=== PATIENT | female | born 1950 | race Caucasian/White ===

== ENCOUNTER 2017-02-14 19:14 | Observation (INO) | payer BC ==
--- NOTE | 2017-02-14 19:51 | DR.GENAD ---
HPI - HPI Comment HPI Comment: PATIENT HAVE SUDDEN ONSET OF N/ V, DIZZINESS AND VERTIGO AT HOME. CAUSE PATIENT TO BECOME WEAK AND HAD NEAR SYMCOPAL EPISODES. PATIENT HAVE RIGHT AKA.PATIENT HAVE HEADACHE ALSO. - Complaint/Symptoms Chief Complaint Doctors Comments: DIZZINESS AND NAUSEA AND VOMITING SUDDEN ONSET TONIGHT. Chief Complaint:: " Real dizzy throwing up and running off at the stomach." - Nurses notes reviewed Nurses Notes Review: Yes - Source History Provided: Patient - Mode of Arrival Mode of Arrival: Wheelchair - Timing Onset of Chief Complaint: 02/14/17 Came on: Suddenly - Duration Duration: Constant Duration: Hours - Severity Severity: Moderate PMH - PMH Past Medical History: Yes Past Medical History: Diabetes, Hypertension Past Surgical History: Yes Surgical History: Other Past Surgical History Comment: Heart surgery x2. Stents x2 - Family History History of Family Medical Conditions: Yes Family Medical History: Heart Failure - Social History Alcohol Use: None Do you use any recreational Drugs:: No Lives With: Family Lives Where: Home - infectious screening Have you traveled outside the country in the last 6 months?: No ROS - Review of Systems Constitutional: Weakness, Fatigue. negative: Chills, Diaphoresis, Fever, Loss of Appetite Eyes: No Symptoms Reported. negative: Eye Pain, Discharge ENTM: No Symptoms Reported. negative: Ear Pain, Nose Discharge, Nose Congestion , Throat Pain Respiratoy: No Symptoms Reported. negative: Productive Cough, Non-Productive Cough, Short of Breath, Wheezing, Hemoptysis Cardiovascular: No Symptoms Reported. negative: Chest Pain, Edema, Palpitations , Syncope Gastrointestinal/Abdominal: negative: Nausea, Vomiting Genitourinary: No Symptoms Reported. negative: Dysuria, Frequency, Hematuria Neurological: No Symptoms Reported, Headache, Weakness, Dizziness Musculoskeletal: Muscle Pain Integumentary: No Symptoms Reported Hematologic/Lymphatic: No Symptoms Reported Endocrine: No Symptoms Reported All Other Systems: Reviewed and Negative PE - Vital Signs Vitals: Temperature 97.8 F Pulse Rate [Left Brachial] 57 Pulse Rate 64 Respiratory Rate 18 Blood Pressure [Left Arm] 219/88 Blood Pressure 204/84 O2 Sat by Pulse Oximetry 97 - General Limitations: No Limitations General Appearance: Alert - Head Head Exam: Normal Inspection - Eyes Eye exam: Normal Appearance - ENT ENT Exam: Normal External Ear Exam External Ear Exam: Normal External Inspection TM/Canal Exam: Bilateral Normal Nose Exam: Normal Nose Exam Mouth Exam: Normal Inspection Throat Exam: Normal Inspection - Neck Neck Exam: Trachea Midline - Chest Chest Inspection: Symmetric Chest Wall Rise - Respiratory Respiratory Exam: Normal Lung Sounds Bilat Respiratory Exam: Bilateral Clear to Auscultation - Abdominal Exam Abdominal Exam: Normal Inspection, Normal Bowel Sounds. negative: Tenderness - Extremities Extremities Exam: Normal Inspection - Back Back Exam: Paraspinal Tenderness - Neurologic Neurological Exam: Alert, Oriented X3, CN II-XII Intact, Reflexes Normal. negative: Motor Sensory Deficit - Psychiatric Psychiatric Exam: Normal Affect, Normal Mood - Skin Skin Exam: Normal Color [facility] - Additional Information Additional Information Obtained From: Family - Differential Diagnosis Differential Diagnosis: VERTIGO, CVA, TIA, DIZZINEE, PA, CAD Course - Treatment Treatment: SEE ORDERS - Education/Counseling Education/Counseling: Patient, Family, Education Educated On: Diagnosis, Needs for Follow Up ROR - Labs Reviewed Laboratory Results Reviewed?: Yes Result Diagrams: 02/15/17 02:24 02/15/17 02:24 Laboratory: WBC 8.3 X10^3/uL (3.6-10.0) 02/15/17 02:24 RBC 3.11 X10^6/uL (3.5-5.4) L 02/15/17 02:24 Hgb 9.7 g/dL (12.0-16.0) L 02/15/17 02:24 Hct 27.1 % (36.0-47.0) L 02/15/17 02:24 MCV 87.1 fL (80.0-100.0) 02/15/17 02:24 MCH 31.1 pg (27.0-34.0) 02/15/17 02:24 MCHC 35.7 g/dL (33.0-35.0) H 02/15/17 02:24 RDW 13.3 % (11.6-16.5) 02/15/17 02:24 Plt Count 167 X10^3/uL (150.0-450.0) 02/15/17 02:24 MPV 8.8 fL (7.4-11.0) 02/15/17 02:24 Neut % 75.4 % (42.0-75.0) H 02/15/17 02:24 Lymph % 16.6 % (21.0-51.0) L 02/15/17 02:24 [place] % 7.6 % (0.0-13.0) 02/15/17 02:24 Eos % 0.2 % (0.9-2.9) L 02/15/17 02:24 Baso % 0.2 % (0.2-1.0) 02/15/17 02:24 Neut # 6.3 x10^3/uL (2.2-4.8) H 02/15/17 02:24 Lymph # 1.4 X10^3/uL (1.3-2.9) 02/15/17 02:24 [place] # 0.6 x10^3/uL (0.3-0.8) 02/15/17 02:24 Eos # 0.0 x10^3/uL (0.0-0.2) 02/15/17 02:24 Baso # 0.0 X10^3/uL (0.0-0.1) 02/15/17 02:24 Absolute Nucleated RBC 0.0 /100WBC 02/15/17 02:24 Sodium 128 mmol/L (136-145) L 02/15/17 02:24 Corrected Sodium 130 mmol/L (136-145) L 02/15/17 02:24 Potassium 4.6 mmol/L (3.5-5.1) 02/15/17 02:24 Chloride 93 mmol/L (98-107) L 02/15/17 02:24 Carbon Dioxide 26.7 mmol/L (21-32) 02/15/17 02:24 BUN 15 mg/dL (7-18) 02/15/17 02:24 Creatinine 1.26 mg/dL (0.55-1.02) H 02/15/17 02:24 Est GFR (MDRD) Af Amer 55 (>60) L 02/15/17 02:24 Est GFR (MDRD) Non-Af 45 (>60) L 02/15/17 02:24 Glucose 191 mg/dL (65-99) H 02/15/17 02:24 Calcium 8.7 mg/dL (8.5-10.1) 02/15/17 02:24 Corrected Calcium TNP 02/15/17 02:24 Total Bilirubin 0.70 mg/dL (0.2-1.0) 02/15/17 02:24 AST 16 Units/L (15-37) 02/15/17 02:24 ALT 19 Units/L (12-78) 02/15/17 02:24 Alkaline Phosphatase 98 Units/L (46-116) 02/15/17 02:24 Creatine Kinase 41 Units/L (26-192) 02/15/17 02:24 CK-MB (CK-2) 1.5 ng/mL (0-4.0) 02/15/17 02:24 CK/CKMB % Calc 3.7 % (<4) 02/15/17 02:24 Troponin I < 0.02 ng/mL (0-1.5) 02/15/17 02:24 Total Protein 6.7 g/dL (6.4-8.2) 02/15/17 02:24 Albumin 3.5 g/dL (3.4-5.0) 02/15/17 02:24 Globulin 3.2 g/dL (2.5-4.5) 02/15/17 02:24 Albumin/Globulin Ratio 1.1 Ratio (1.1-2.1) 02/15/17 02:24 Triglycerides 57 mg/dL (0-150) 02/15/17 02:24 Cholesterol 105 mg/dL (0-200) 02/15/17 02:24 LDL Cholesterol, Calc 51 mg/dL (0-100) 02/15/17 02:24 HDL Cholesterol 43 mg/dL (40-60) 02/15/17 02:24 Cholesterol/HDL Ratio 2.4 (0.0-5.0) 02/15/17 02:24 Specimen Type Clean catch urine 02/14/17 23:00 Urine Color Yellow (YELLOW) 02/14/17 23:00 Urine Appearance Clear (CLEAR) 02/14/17 23:00 Urine pH 8.0 (5.0 - 8.0) 02/14/17 23:00 Ur Specific [place] 1.015 (1.000-1.030) 02/14/17 23:00 Urine Protein Negative (NEGATIVE) 02/14/17 23:00 Urine Glucose (UA) Negative (NEGATIVE) 02/14/17 23:00 Urine Ketones Negative (NEGATIVE) 02/14/17 23:00 Urine Occult Blood 3+ (NEGATIVE) 02/14/17 23:00 Urine Nitrite Negative (NEGATIVE) 02/14/17 23:00 Urine Bilirubin Negative (NEGATIVE) 02/14/17 23:00 Urine Urobilinogen Normal (NORMAL) 02/14/17 23:00 Ur Leukocyte Esterase Negative (NEGATIVE) 02/14/17 23:00 Urine RBC 3-5 /HPF (NEGATIVE) 02/14/17 23:00 Urine WBC None seen /HPF (NEGATIVE) 02/14/17 23:00 Ur Squamous Epith Cells Rare /HPF (NEGATIVE) 02/14/17 23:00 Urine Bacteria Negative /HPF (NEGATIVE) 02/14/17 23:00 Ur Culture Indicated? No/not indicated 02/14/17 23:00 - XRAY XRAY Interpreted by: Radiologist XRAY Findings: REPORT DISCUSS WITH PATIENT. - EKG Rhythm: NSR (EKG NOTED.) - Diagnosis Discharge Problem: Abnormal CT of brain, Vertigo, Dizziness, Ataxia - Discharge Plan Disposition: ADMITTED INPATIENT Condition: Stable - Follow ups/Referrals - Instructions
[2017-02-14] MEDS ORDERED: ZOFRAN INJ 4 MG VIAL IVP ONE (19:53)
[2017-02-14 20:10] LABS: BASOPHILS % (AUTO) 0.3 % (0.2-1.0); EOSINOPHILS # (AUTO) 0.1 x10^3/uL (0.0-0.2); EOSINOPHILS % (AUTO) 0.9 % (0.9-2.9); HEMATOCRIT 31.7 % (36.0-47.0); HEMOGLOBIN 11.1 g/dL (12.0-16.0); LYMPHOCYTES # (AUTO) 1.4 X10^3/uL (1.3-2.9); LYMPHOCYTES % (AUTO) 12.4 % (21.0-51.0); MEAN CORPUSCULAR HEMOGLOBIN 30.2 pg (27.0-34.0); MEAN CORPUSCULAR VOLUME 86.3 fL (80.0-100.0); MEAN PLATELET VOLUME 8.7 fL (7.4-11.0); MONOCYTES # (AUTO) 1.2 x10^3/uL (0.3-0.8); MONOCYTES % (AUTO) 9.9 % (0.0-13.0); NEUTROPHILS % (AUTO) 76.5 % (42.0-75.0); PLATELET COUNT 191 X10^3/uL (150.0-450.0); RED BLOOD COUNT 3.67 X10^6/uL (3.5-5.4); RED CELL DISTRIBUTION WIDTH 13.6 % (11.6-16.5); WHITE BLOOD COUNT 11.7 X10^3/uL (3.6-10.0)
[2017-02-14] MEDS ORDERED: ZOFRAN INJ 4 MG VIAL ONE (20:24)
[2017-02-14 20:26] LABS: BLOOD UREA NITROGEN 14 mg/dL (7-18); CALCIUM 9.4 mg/dL (8.5-10.1); CARBON DIOXIDE 27.9 mmol/L (21-32); CHLORIDE 90 mmol/L (98-107); COR NA(FOR HYPERGLY) 129 mmol/L (136-145); CREATININE 1.28 mg/dL (0.55-1.02); GLUCOSE 187 mg/dL (65-99); SODIUM 127 mmol/L (136-145); TROPONIN I < 0.02 ng/mL (0-1.5); eGFR BLACK RACES 54 (>60); eGFR NON BLACK RACES 44 (>60)
[2017-02-14 20:30] LABS: ALANINE AMINOTRANSFERASE 23 Units/L (12-78); ALBUMIN 4.1 g/dL (3.4-5.0); ALKALINE PHOSPHATASE 117 Units/L (46-116); ASPARTATE AMINO TRANSFERASE 19 Units/L (15-37); CKMB % 3.4 % (<4); CREATINE KINASE 41 Units/L (26-192); CREATINE KINASE MB 1.4 ng/mL (0-4.0); TOTAL PROTEIN 7.9 g/dL (6.4-8.2)
[2017-02-14] MEDS: NS 1000 ML 1,000 ML IV SCH (20:36)
--- NOTE | 2017-02-14 21:36 | CT ---
STUDY: CT HEAD WITHOUT CONTRAST HISTORY: Dizziness. Acute onset of dizziness, nausea and vomiting. COMPARISON: None. TECHNIQUE: Multiple axial images of the head were obtained from the skull base to the vertex without administration of IV contrast. Automated exposure control (AEC) was utilized to adjust the MA and/o r kV. Findings: The sulci, cisterns and ventricles are prominent consistent with diffuse volume loss. There are scattered foci of low attenuation in the periventricular and subcortical white matter of b oth hemispheres. This is a nonspecific finding which likely represents microangiopathic change in a patient of this age. There is a chronic infarct with encephalomalacia at the junction of the left occipital and parietal lobes. There is a small ill-defined focus of high attenuation in the left occipital lobe. There is n o evidence of acute territorial infarction, mass, mass effect or midline shift. There are no abnorma l extra-axial fluid collections. There is no evidence of acute osseous abnormality or significant soft tissue swelling. IMPRESSION: 1. Small ill-defined focus of high attenuation in the left occipital lobe. This likely represents a small focus of mineralization. Small focus of hemorrhage is not favored, but is not excluded. 2. Old infarct with encephalomalacia in the left parietal occipital lobes. 3. Nonspecific white matter change and volume loss as described. 4. If there remains strong clinical concern for acute intracranial abnormality, then an MRI examinat ion should be considered for further evaluation. Reported By:
--- NOTE | 2017-02-14 23:13 | RAD ---
HISTORY: 66-year-old female with dizziness. Study: Single frontal view of the chest. Comparison: None. Findings: Prior CABG. The trachea is midline. The cardiac silhouette is enlarged. No focal consolidation, effusion or pn eumothorax. The bony thorax is unremarkable. IMPRESSION: 1. Cardiomegaly without other acute cardiopulmonary process. Reported By:
[2017-02-14 23:15] LABS: BILIRUBIN,URINE NEGATIVE (NEGATIVE); BLOOD/HEMOGLOBIN,URINE 3+ (NEGATIVE); GLUCOSE, URINE NEGATIVE (NEGATIVE); KETONES,URINE NEGATIVE (NEGATIVE); LEUKOCYTE ESTERASE ,URINE NEGATIVE (NEGATIVE); NITRITES,URINE NEGATIVE (NEGATIVE); PROTEIN,URINE NEGATIVE (NEGATIVE); UROBILINOGEN,URINE NORMAL (NORMAL)
[2017-02-14 23:22] LABS: APPEARANCE,URINE CLEAR (CLEAR); COLOR,URINE YELLOW (YELLOW)
[2017-02-14 23:23] LABS: BACTERIA,URINE NEGATIVE /HPF (NEGATIVE); SQUAMOUS EPITHELIAL CELL,UR RARE /HPF (NEGATIVE)
[2017-02-15] MEDS ORDERED: CATAPRES TAB 0.2 MG PO ONE (00:33)
[2017-02-15] MEDS ORDERED: CATAPRES TAB 0.2 MG ONE (00:39)
[2017-02-15 02:38] LABS: BASOPHILS % (AUTO) 0.2 % (0.2-1.0); EOSINOPHILS % (AUTO) 0.2 % (0.9-2.9); HEMATOCRIT 27.1 % (36.0-47.0); HEMOGLOBIN 9.7 g/dL (12.0-16.0); LYMPHOCYTES # (AUTO) 1.4 X10^3/uL (1.3-2.9); LYMPHOCYTES % (AUTO) 16.6 % (21.0-51.0); MEAN CORPUSCULAR HEMOGLOBIN 31.1 pg (27.0-34.0); MEAN CORPUSCULAR HGB CONC 35.7 g/dL (33.0-35.0); MEAN CORPUSCULAR VOLUME 87.1 fL (80.0-100.0); MEAN PLATELET VOLUME 8.8 fL (7.4-11.0); MONOCYTES # (AUTO) 0.6 x10^3/uL (0.3-0.8); MONOCYTES % (AUTO) 7.6 % (0.0-13.0); NEUTROPHILS # (AUTO) 6.3 x10^3/uL (2.2-4.8); NEUTROPHILS % (AUTO) 75.4 % (42.0-75.0); PLATELET COUNT 167 X10^3/uL (150.0-450.0); RED BLOOD COUNT 3.11 X10^6/uL (3.5-5.4); RED CELL DISTRIBUTION WIDTH 13.3 % (11.6-16.5); WHITE BLOOD COUNT 8.3 X10^3/uL (3.6-10.0)
[2017-02-15 02:49] LABS: ALANINE AMINOTRANSFERASE 19 Units/L (12-78); ALBUMIN 3.5 g/dL (3.4-5.0); ALKALINE PHOSPHATASE 98 Units/L (46-116); ASPARTATE AMINO TRANSFERASE 16 Units/L (15-37); BLOOD UREA NITROGEN 15 mg/dL (7-18); CALCIUM 8.7 mg/dL (8.5-10.1); CARBON DIOXIDE 26.7 mmol/L (21-32); CHLORIDE 93 mmol/L (98-107); CHOL/HDL RATIO 2.4 (0.0-5.0); CHOLESTEROL 105 mg/dL (0-200); COR NA(FOR HYPERGLY) 130 mmol/L (136-145); CREATININE 1.26 mg/dL (0.55-1.02); GLUCOSE 191 mg/dL (65-99); HDL CHOLESTEROL 43 mg/dL (40-60); SODIUM 128 mmol/L (136-145); TOTAL PROTEIN 6.7 g/dL (6.4-8.2); TRIGLYCERIDES 57 mg/dL (0-150); eGFR BLACK RACES 55 (>60); eGFR NON BLACK RACES 45 (>60)
[2017-02-15 02:56] LABS: CKMB % 3.7 % (<4); CREATINE KINASE 41 Units/L (26-192); CREATINE KINASE MB 1.5 ng/mL (0-4.0); TROPONIN I < 0.02 ng/mL (0-1.5)
[2017-02-15] MEDS: NS 1000 ML 1,000 ML IV SCH ×3 (05:01→21:35)
[2017-02-15 05:22] VITALS: BMI 24.3
[2017-02-15 09:03] LABS: CKMB % 3.5 % (<4); CREATINE KINASE 51 Units/L (26-192); CREATINE KINASE MB 1.8 ng/mL (0-4.0); TROPONIN I < 0.02 ng/mL (0-1.5)
--- NOTE | 2017-02-15 12:26 | DR.H&P ---
H&P - History & Physical for Day of: H&P Date: 02/15/17 - Chief Complaint Chief Complaint: DIZZINESS, WEAKNESS - Allergies Allergies/Adverse Reactions: Allergies Allergy/AdvReac Type Severity Reaction Status Date / Time MS Acetaminophen Allergy Verified 02/14/17 19:43 [From MS Lorcet 10/650] MS Atropine Allergy Verified 02/14/17 19:43 [From MS Atropine and Demerol] MS Hydrocodone Allergy Verified 02/14/17 19:43 [From MS Lorcet 10/650] MS Ibuprofen [From MS Motrin] Allergy Verified 02/14/17 19:43 MS Meperidine Allergy Verified 02/14/17 19:43 [From MS Atropine and Demerol] MS Naproxen [From MS Aleve] Allergy Verified 02/14/17 19:43 MS Prednisone Allergy Verified 02/14/17 19:43 MS Tramadol Allergy Verified 02/14/17 19:43 MS Warfarin Allergy Verified 02/14/17 19:43 - History of Present Illness History of Present Illness: 66 WF ADMITTED FROM ER AFTER PRESENTING WITH CO DIZZINESS AND WEAKNESS. PT STATES SHE HAD "WAVE" HEAT COME OVER HER AND SHE HAD SEVERE TEJADA FOLLOWED BY WEAKNESS. PT HAD CT SCAN IN ED WITH OLD INFARCTS. PT DEINES ANY HX CVA. PLAN TO ADMIT FOR ADITIONAL EVALUATION. 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 PT IS ON PLAVIX DAILY - Past Medical History Past Medical History: Diabetes, Hypertension - Past Surgical History Surgical History: Other - Family History Family Medical History: Heart Failure - Social History Does patient currently use any type of tobacco product: No Have you used tobacco products in the last 12 months: No Type of Tobacco Use: None Does any household member use tobacco: No Alcohol Use: None Drug Use: None - Medications Home Medications: Aspirin [Aspirin Adult Low Dose] 1 tab PO DAILY 02/15/17 [History Confirmed ] Atorvastatin Calcium [LIPITOR Tab 20 mg *] 1 tab PO DAILY 02/15/17 [History Confirmed 02/15/17] Carvedilol [Carvedilol] 1 tab PO BID 02/15/17 [History Confirmed 02/15/17] Clopidogrel Bisulfate [Clopidogrel] 1 tab PO DAILY 02/15/17 [History Confirmed 02/15/17] Esomeprazole Magnesium [NEXIUM 40 MG *] 1 cap PO DAILY 02/15/17 [History Confirmed 02/15/17] Furosemide [Furosemide] 1 tab PO DAILY 02/15/17 [History Confirmed 02/15/17] Nitroglycerin [Nitroglycerin] 1 tab SL Q5M PRN 02/15/17 [History Confirmed 02/15] Sitagliptin Phosphate [JANUVIA 100 MG *] 1 tab PO DAILY 02/15/17 [History Confirmed 02/15/17] Spironolactone [Spironolactone] 1 tab PO DAILY 02/15/17 [History Confirmed 02/15] - Review of Systems Constitutional: Weakness Eyes: No Symptoms Reported ENT: No Symptoms Reported Respiratory: No Symptoms Reported Cardiovascular: No Symptoms Reported Gastrointestinal: No Symptoms Reported Genitourinary: No Symptoms Reported Musculoskeletal: No Symptoms Reported Skin: No Symptoms Reported Neurological: No Symptoms Reported - Physical Exam Vital Signs: Temperature 97.5 F Pulse Rate [Left Brachial] 52 Respiratory Rate 20 Blood Pressure [Left Arm] 135/60 O2 Sat by Pulse Oximetry 96 Oriented: Normal Eyes: Normal Ear: Normal Nose: Normal Throat: Normal Respiratory: RLL Exp. Wheeze, LLL Exp. Wheeze Cardiovascular: Normal : Normal Auscultation: Bowel Sounds: Normal Palpation: Normal Tenderness: Normal Skin: Normal Musculoskeletal: Normal Speech Pattern: Clear, Appropriate - Assessment/Plan (1) Abnormal CT of brain Status: Acute Plan: MRI, CAROTID US. BP CONTROL, ASA AND PLAVIX CONTINUED. STATIN THERAPY. REPEAT AM LABS (2) Hypertension Qualifiers: Hypertension type: H Status: Acute (3) Dizziness Status: Acute
[2017-02-15 14:39] LABS: CKMB % 2.9 % (<4); CREATINE KINASE 63 Units/L (26-192); CREATINE KINASE MB 1.8 ng/mL (0-4.0); TROPONIN I < 0.02 ng/mL (0-1.5)
[2017-02-15] MEDS ORDERED: VALIUM PO PRN (15:41)
--- NOTE | 2017-02-15 16:25 | VAS ---
STUDY: CAROTID DUPLEX DOPPLER EXAMINATION History: CVA. Dizziness and weakness. Comparison: None. Technique: Multiple hernández scale and color flow Doppler images of the right and left carotid arterial system were obtained. The vertebral arterial system was evaluated as well. Findings: Normal color flow Doppler is seen throughout the right and left carotid arterial system. There is mild atherosclerotic plaque involving the CCA, carotid bulb, and proximal right ICA on the left greater than right. There is moderate elevation of peak systolic velocity in the left internal carotid artery to 128 cm/ sec. There is no evidence of hemodynamically significant stenosis in the internal carotid arteries o n the right side based on velocity criteria. Vertebral artery flow is antegrade bilaterally. IMPRESSION: 1. Moderate elevation of peak systolic velocity in the left ICA corresponding to 50-69% stenosis by modified NASCET criteria. Reported By:
--- NOTE | 2017-02-15 17:53 | MRI ---
MRI BRAIN WITHOUT AND WITH CONTRAST CLINICAL HISTORY: 66-year-old female with dizziness and abnormal CT head this date. COMPARISON: CT head this date. TECHNIQUE: Multiplanar, multisequence MR images of the brain were obtained prior to and following t he uneventful intravenous administration of contrast. FINDINGS: Ischemic insult involving the inferior parietal lobule and left occipital lobe with mildly enhancing cortical laminar necrosis and small volume hemorrhage with associated macro cystic encephalomalacia . Susceptibility within the inferior parietal lobule that corresponds to hyperdensities seen on CT i s consistent with chronic micro hemorrhage. There is no evidence of diffusion restriction. The craniocervical junction is normal. Pituitary and optic nerve complex are normal. Multifocal confluent and punctate T2 FLAIR signal hyperintensities a re present within the periventricular and supraventricular white matter that are nonspecific in appe arance but most likely to represent microvascular white matter ischemic changes. Normal signal jak cteristics and morphology are demonstrated within the corpus callosum, deep hernández nuclei, brainstem a nd cerebellum. Age advanced cortical volume loss is present, with commensurate sulcal and ventricula r prominence. The major vascular channels opacify normally and the major vascular flow voids, to inc lude the dural venous sinuses, are intact. The basilar cisterns are normal. There is no evidence of abnormal intracranial enhancement. The orbits and globes are within normal limits. Trace fluid in the dependent aspect of the right mas toid air cells. The remaining imaged paranasal sinuses, mastoid air cells and tympanic cavities are clear. IMPRESSION: 1. Findings suggestive of early chronic ischemic insult involving the left parietal and occipital lo bes with associated cortical laminar necrosis with areas of microhemorrhage centrally. Recommend fatimah rt-term interval followup 4-6 weeks to exclude underlying hemorrhagic cavernous malformation. 2. Abnormal focus of hyperdensity seen on CT corresponds to susceptibility in the inferior parietal lobe consistent with micro hemorrhage with calcification. 3. Chronic microvascular white matter ischemic disease with age advanced volume loss. 4. No acute ischemic or hemorrhagic insult. Reported By:
[2017-02-15] MEDS ORDERED: SNACK - Diabetic Appropriate PO SCH (20:00)
[2017-02-15] MEDS: JANUVIA PO SCH (21:34)
[2017-02-15] MEDS: COREG TAB 12.5 MG PO SCH (21:34)
[2017-02-16 05:23] LABS: BASOPHILS % (AUTO) 0.3 % (0.2-1.0); EOSINOPHILS # (AUTO) 0.1 x10^3/uL (0.0-0.2); EOSINOPHILS % (AUTO) 1.6 % (0.9-2.9); HEMATOCRIT 28.1 % (36.0-47.0); HEMOGLOBIN 9.9 g/dL (12.0-16.0); LYMPHOCYTES # (AUTO) 1.8 X10^3/uL (1.3-2.9); LYMPHOCYTES % (AUTO) 33.3 % (21.0-51.0); MEAN CORPUSCULAR HEMOGLOBIN 31.2 pg (27.0-34.0); MEAN CORPUSCULAR HGB CONC 35.2 g/dL (33.0-35.0); MEAN CORPUSCULAR VOLUME 88.7 fL (80.0-100.0); MEAN PLATELET VOLUME 9.1 fL (7.4-11.0); MONOCYTES # (AUTO) 0.7 x10^3/uL (0.3-0.8); MONOCYTES % (AUTO) 12.1 % (0.0-13.0); NEUTROPHILS # (AUTO) 2.9 x10^3/uL (2.2-4.8); NEUTROPHILS % (AUTO) 52.7 % (42.0-75.0); PLATELET COUNT 150 X10^3/uL (150.0-450.0); RED BLOOD COUNT 3.16 X10^6/uL (3.5-5.4); RED CELL DISTRIBUTION WIDTH 13.6 % (11.6-16.5); WHITE BLOOD COUNT 5.5 X10^3/uL (3.6-10.0)
[2017-02-16 05:40] LABS: ALANINE AMINOTRANSFERASE 18 Units/L (12-78); ALBUMIN 3.3 g/dL (3.4-5.0); ALKALINE PHOSPHATASE 91 Units/L (46-116); ASPARTATE AMINO TRANSFERASE 15 Units/L (15-37); BLOOD UREA NITROGEN 12 mg/dL (7-18); CALCIUM 9.2 mg/dL (8.5-10.1); CARBON DIOXIDE 23.4 mmol/L (21-32); CHLORIDE 103 mmol/L (98-107); COR CA(FOR HYPOALB) 9.8 mg/dL (8.5-10.1); COR NA(FOR HYPERGLY) 135 mmol/L (136-145); CREATININE 1.04 mg/dL (0.55-1.02); GLUCOSE 127 mg/dL (65-99); SODIUM 134 mmol/L (136-145); TOTAL PROTEIN 6.6 g/dL (6.4-8.2); eGFR BLACK RACES > 60 (>60); eGFR NON BLACK RACES 57 (>60)
[2017-02-16] MEDS: NS 1000 ML 1,000 ML IV SCH ×2 (06:08→12:00)
[2017-02-16] MEDS: COREG TAB 12.5 MG PO SCH (08:49)
[2017-02-16] MEDS: JANUVIA PO SCH (08:49)
[2017-02-16] MEDS ORDERED: LIPITOR TAB 20 MG PO SCH (09:00)
[2017-02-16] MEDS ORDERED: ALDACTONE TAB 25 MG PO SCH (09:00)
[2017-02-16] MEDS ORDERED: PLAVIX PO SCH (09:00)
[2017-02-16] MEDS ORDERED: NexIUM PO SCH (09:00)
[2017-02-16] MEDS ORDERED: ASPIRIN EC 81 MG PO SCH (09:00)
[2017-02-16] MEDS ORDERED: LASIX PO SCH (09:00)
[2017-02-16 12:35] VITALS: BP 172/75
== END 2017-02-16 16:10 | disposition home or self-care (01) ==
LOC: ER 19:35 → MED/SURG 02-15 00:28
PROVIDERS: ADMIT Internal Medicine; ATTEND Internal Medicine
DX: R42 Dizziness and giddiness (principal); R90.89 Other abnormal findings on diagnostic imaging of central nervous system; I10 Essential (primary) hypertension; R94.31 Abnormal electrocardiogram [ECG] [EKG]; R11.2 Nausea with vomiting, unspecified; R55 Syncope and collapse; R53.83 Other fatigue; D64.89 Other specified anemias; E87.6 Hypokalemia; R94.4 Abnormal results of kidney function studies; R73.09 Other abnormal glucose
CPT/HCPCS: 36415; 70450; 70553; 71010; 80053; 80061; 81001; 82550; 82553; 84484; 85025; 93005; 93010; 93880; 94760; 96365; 96367; 96374; 99218; 99284; A4216; A4222; G0378; J2405